=== PATIENT | female | born 1990 | race Caucasian/White ===

== ENCOUNTER → 2017-08-13 | Emergency (ER) | payer OTHER ==
[~2017-08-13] VITALS: Ht 160 cm; Wt 68.5 kg
[~2017-08-13] MED LIST: FLONASE ALLERG9.9 ML NASAL; MUCINEX DM ER1 EAC1 PO; ZITHROMAX500 MG PO; ZYRTEC10 MG PO
== END | disposition home or self-care (01) ==
LOC: ER 11:42
DX: J32.8 Other chronic sinusitis (principal)

== ENCOUNTER 2017-09-20 21:02 | Emergency (ER) | payer OTHER ==
[~2017-09-20] VITALS: Ht 160 cm; Wt 68.9 kg
== END 2017-09-20 22:48 | disposition home or self-care (01) ==
LOC: ER 21:02
DX: O26.892 Other specified pregnancy related conditions, second trimester (principal); T78.49XA Other allergy, initial encounter; Z34.02 Encounter for supervision of normal first pregnancy, second trimester

== ENCOUNTER 2018-01-26 13:38 | Outpatient (CLI) | payer OTHER | END 2018-01-26 19:44 | disposition home or self-care (01) | LOC: OBS/DEL 13:38 | DX: O26.893 Other specified pregnancy related conditions, third trimester (principal); M94.0 Chondrocostal junction syndrome [Tietze]; Z34.83 Encounter for supervision of other normal pregnancy, third trimester ==

== ENCOUNTER 2018-02-11 11:38 | Inpatient (IN) | payer OTHER ==
[~2018-02-11] VITALS: Ht 160 cm; Wt 84.4 kg
[2018-03-04] MEDS ORDERED: OBSTETRIX EC C1 EACH PO (13:59)
[2018-03-04] MEDS ORDERED: TUMS200 MG PO (14:00)
== END 2018-03-07 15:10 | disposition home or self-care (01) | DRG 787 ==
LOC: LDR 03-04 13:01 → OB/GYN 03-04 18:52 → LDR 03-14 14:45
PROVIDERS: Specialist
PROC: 4A1HXCZ Monitoring of Products of Conception, Cardiac Rate, External Approach (ICD-10-PCS; 2018-03-04)
PROC: 10D00Z1 Extraction of Products of Conception, Low, Open Approach (ICD-10-PCS; principal; 2018-03-04 16:00)
DX: O64.1XX0 Obstructed labor due to breech presentation, not applicable or unspecified (principal); O41.03X0 Oligohydramnios, third trimester, not applicable or unspecified; Z3A.38 38 weeks gestation of pregnancy; Z37.0 Single live birth

== ENCOUNTER 2018-03-04 08:40 | Outpatient (CLI) | payer OTHER ==
[2018-03-04] MEDS ORDERED: OBSTETRIX EC C1 EACH PO (13:59)
[2018-03-04] MEDS ORDERED: TUMS200 MG PO (14:00)
== END 2018-03-04 08:43 | disposition home or self-care (01) ==
LOC: MAMO-SONO 08:40
DX: O09.93 Supervision of high risk pregnancy, unspecified, third trimester (principal)